=== PATIENT | male | born 1955 | race Caucasian/White ===

== ENCOUNTER 2019-02-06 19:39 | Emergency (ER) | payer OTHER ==
--- NOTE | 2019-02-06 19:47 | EDM.PDOC ---
ED HPI GENERAL MEDICAL PROBLEM - General Chief Complaint: Upper Extremity Injury/Pain Stated Complaint: Right Elbow Injury Time Seen by Provider: 02/06/19 19:42 Source of Information: Reports: Patient, Family, RN, RN Notes Reviewed History Limitations: Reports: No Limitations - History of Present Illness INITIAL COMMENTS - FREE TEXT/NARRATIVE: Patient presents to the ED at [facility] for the evaluation of a right elbow injury. This is not a work related injury. Patient states while holding a door, he accidentally stepped on a garden hoe that flipped up striking him on the lower right lateral elbow. Patient states he is unable to move the elbow due to pain. No previous injury or trauma to the affected area. No previous surgeries. He denies any numbness, tingling, or paresthesia to the right upper extremity. No right shoulder or right wrist pathology. Onset: Today Onset Date: 02/06/19 Right Elbow Pain Score (Numeric/FACES): 7 - Related Data Allergies Allergy/AdvReac Type Severity Reaction Status Date / Time No Known Allergies Allergy Verified 02/06/19 19:47 Home Meds: Home Meds Multivitamin [Multivitamins] 1 each PO DAILY 02/06/19 [History] Review of Systems - Review of Systems Review Of Systems: See Below Constitutional: Denies: Chills, Fever Respiratory: Denies: Shortness of Breath, Cough Cardiovascular: Denies: Chest Pain, Palpitations Musculoskeletal: Reports: Joint Pain, Joint Swelling, Muscle Pain, Muscle Stiffness Skin: Reports: No Symptoms Neurological: Reports: No Symptoms ED EXAM, GENERAL - Physical Exam Exam: See Below Exam Limited By: No Limitations General Appearance: Alert, No Apparent Distress Respiratory/Chest: No Respiratory Distress, Lungs Clear, Normal Breath Sounds Cardiovascular: Normal Peripheral Pulses, Regular Rate, Rhythm Peripheral Pulses: 3+: Radial (L), Radial (R) Extremities: Joint Swelling (mild right lateral swelling; tender to palpation; no obvious bone/joint deformity; skin intact), Limited Range of Motion (right elbow due to pain). No: Arm Pain Neurological: Alert, Oriented Skin Exam: Warm, Dry, Intact, Normal Color Course - Vital Signs Last Recorded V/S: Last Vital Signs Temp 36.0 C 02/06/19 19:39 Pulse 68 02/06/19 19:39 Resp 16 02/06/19 19:39 BP 140/89 02/06/19 19:39 Pulse Ox 96 02/06/19 19:39 - Orders/Labs/Meds Orders: Active Orders 24 hr Category Date Time Status DME for Discharge [COMM] Routine Oth 02/06/19 20:00 Ordered - Radiology Interpretation Free Text/Narrative:: Elbow, Right 3V: No acute fracture or dislocation seen on plain film See scanned report in EMR for details Departure - Departure Time of Disposition: 20:02 Disposition: Home, Self-Care 01 Condition: Good Clinical Impression: Swelling of joint, elbow, right Elbow injury Qualifiers: Encounter type: initial encounter Laterality: right Qualified Code(s): S59.901A - Unspecified injury of right elbow, initial encounter Elbow contusion Qualifiers: Encounter type: initial encounter Laterality: right Qualified Code(s): S50.01XA - Contusion of right elbow, initial encounter - Discharge Information *PRESCRIPTION DRUG MONITORING PROGRAM REVIEWED*: Not Applicable *COPY OF PRESCRIPTION DRUG MONITORING REPORT IN PATIENT BREANA: Not Applicable Instructions: Elbow Contusion Forms: ED Department Discharge Additional Instructions: 1. Stay well hydrated and rest 2. Elevate and ice right elbow several times a day, this will help decrease swelling and pain 3. May alternate Tylenol/Advil as needed 4. See your PCP as symptoms warrant - Problem List Review Problem List Initiated/Reviewed/Updated: Yes - My Orders Last 24 Hours: My Active Orders 02/06/19 20:00 DME for Discharge [COMM] Routine - Assessment/Plan Last 24 Hours: My Active Orders 02/06/19 20:00 DME for Discharge [COMM] Routine Assessment:: Blunt Injury, right elbow Right elbow contusion Swelling of right elbow 2/2 blunt injury Plan: Xray and exam findings discussed with patient. No acute fracture or dislocation seen on plain film. Recommend rest, elevation, and ice for the next couple of days. Use Tylenol/Advil as needed for pain. Right arm sling applied per nursing. Discussed wearing the sling with ice under the elbow. Offered Tylenol/ Advil but patient refused stating he has some at home. F/U with PCP as symptoms warrant.
--- NOTE | 2019-02-06 20:22 | CR ---
[id number] RAD/RAD Elbow Right 3V Min Exam: RAD Elbow Right 3V Min Indication:BLUNT INJURY Comparison: No prior imaging for comparison. Discussion: Mild ulnotrochlear osteoarthritis. Negative for fracture or joint effusion. Bones are normal alignment. Impression: No acute findings. William Penn MD 02/06/192020 Thank you for allowing us to participate in the care of your patient.
== END 2019-02-06 20:35 | disposition home or self-care (01) ==
LOC: VM.ED 19:39
DX: S50.01XA Contusion of right elbow, initial encounter (principal); W22.8XXA Striking against or struck by other objects, initial encounter
CPT/HCPCS: 73080-RT; 99283-25